=== PATIENT | male | born 1965 | race Caucasian/White ===

== ENCOUNTER → 2017-12-19 | Emergency (ER) | payer OTHER ==
[~2017-12-19] VITALS: Ht 170.2 cm; Wt 95.3 kg
[~2017-12-19] MED LIST: AMOX1TAB12 PO; CELEBREX100 MG PO; DIAZEPAM10 MG PO; EFFEXOR XR75 MG; IBUPROFEN800 MG PO; SKELAXIN800 MG PO; TUSSI PRES-B L120 M1 PO; ZITHROMAX TRI-500 MG PO
== END | disposition home or self-care (01) ==
LOC: ER 09:05
DX: B34.9 Viral infection, unspecified (principal)

== ENCOUNTER 2024-06-09 09:08 | Emergency (ER) | payer OTHER ==
[~2024-06-09] VITALS: Ht 170.2 cm; Wt 99.8 kg
[2024-06-09] MEDS ORDERED: NEO-POLY-DEXAMET5 ML OP (09:29)
[2024-06-09] MEDS ORDERED: TETRACAINE HCL 20 DR/ML DROPS OP ONE (09:30)
== END 2024-06-09 09:56 | disposition home or self-care (01) ==
LOC: ER 09:09
DX: H00.013 Hordeolum externum right eye, unspecified eyelid (principal)